=== PATIENT | male | born 1960 | race Caucasian/White ===

== ENCOUNTER 2017-03-08 11:54 | Emergency (ER) | payer MEDICARE, MEDICAID ==
[2017-03-08 12:29] VITALS: BP 128/79
--- NOTE | 2017-03-08 12:51 | EDM.PDOC ---
[id number] DEVELOPED ON JAW Time Seen by Provider: 03/08/17 12:30 Source of Information: Reports: Patient, Family History Limitations: Reports: No limitations - History of Present Illness INITIAL COMMENTS - FREE TEXT/NARRATIVE: 57-year-old male who has undergone some extensive mandible surgical procedures for osteomyelitis was doing well but over the last 24 hours has developed a reddened fluctuant area on the left mandible near his surgical incisions. No fever but he claims it is somewhat tender. Onset: gradual (Over the past day) Location: Reports: face Severity: mild Associated Symptoms: Denies: fever/chills, headaches, shortness of breath - Related Data Allergies Allergy/AdvReac Type Severity Reaction Status Date / Time amoxicillin [Amoxicillin] Allergy Rash Verified 03/08/17 13:54 dexamethasone [From Decadron] Allergy Burning Verified 03/08/17 13:54 simvastatin AdvReac Muscle Verified 03/08/17 13:54 Aches environmental Allergy Chest Uncoded 03/08/17 13:54 Tightness Home Meds: Home Meds Cetirizine HCl [Allergy Relief] 10 mg PO DAILY PRN 09/05/14 [History] Cholecalciferol (Vitamin D3) [Vitamin D] 2,000 unit PO DAILY 09/05/14 [History] Donepezil HCl [Aricept] 10 mg PO DAILY 09/05/14 [History] Meloxicam [Mobic] 15 mg PO DAILY 09/05/14 [History] Multivitamin with Minerals [Multiple Vitamin] 1 tab PO DAILY 09/05/14 [History] clomiPRAMINE HCl [Anafranil] 150 mg PO BID 09/05/14 [History] risperiDONE [Risperdal] 0.5 mg PO BID 09/05/14 [History] Levothyroxine [Levothroid] 150 mcg PO DAILY 10/23/15 [History] Past Medical History HEENT History: Reports: Allergic rhinitis, Impaired vision Respiratory History: Reports: Asthma Gastrointestinal History: Reports: GERD Musculoskeletal History: Reports: Arthritis, Osteoarthritis Neurological History: Reports: Other (see below) Other Neuro History: Downs syndrome Psychiatric History: Reports: Anxiety, OCD Endocrine/Metabolic History: Reports: Hypothyroidism Oncologic (Cancer) History: Reports: Other (see below) Other Oncologic History: skin Dermatologic History: Reports: Other (see below) Other Dermatologic History: basal cell on forehead and shoulder/back - Infectious Disease History Infectious Disease History: Reports: Chicken pox, Herpes, Measles, RSV - Past Surgical History HEENT Surgical History: Reports: Eye surgery, Oral surgery, Other (see below) Other HEENT Surgeries/Procedures: dental implants lower, dental implants removed , debriedment and removal of left side of mandible, mandible reconstruction GI Surgical History: Reports: Colonoscopy Oncologic Surgical History: Reports: None Dermatological Surgical History: Reports: Skin biopsy Social & Family History - Family History Family Medical History: Noncontributory - Tobacco Use Smoking Status *Q: Never Smoker Second Hand Smoke Exposure: No - Caffeine Use Caffeine Use: Reports: Coffee - Alcohol Use Days Per Week of Alcohol Use: 0 - Recreational Drug Use Recreational Drug Use: No ED ROS GENERAL - Review of Systems Review Of Systems: See Below Constitutional: Denies: fever, chills, malaise HEENT: Reports: Other (Some mild increased jaw pain) Respiratory: Denies: Shortness of Breath Cardiovascular: Denies: Chest pain GI/Abdominal: Denies: Nausea, Vomiting Skin: Reports: erythema (Some erythema over the swollen area of the left jaw) Neurological: Denies: Headache Psychiatric: Reports: Other (Patient has Down's syndrome) ED EXAM, GENERAL - Physical Exam Exam: See Below Exam Limited By: No limitations General Appearance: alert, no apparent distress Neck: other (Patient does have a somewhat fluctuant swollen area approximately 2.5 x 2.5 cm under the left jaw. It is slightly erythematous but not warm, patient claims there is some tenderness to palpation.) Respiratory/Chest: no respiratory distress Course - Vital Signs Last Recorded V/S: Last Vital Signs Temp 97.3 F 03/08/17 12:28 Pulse 75 03/08/17 12:28 Resp 14 03/08/17 12:28 BP 128/79 03/08/17 12:28 Pulse Ox 100 03/08/17 12:28 - Orders/Labs/Meds Labs: Laboratory Tests 03/08/17 03/08/17 Range/Units 12:52 12:52 WBC 6.4 (4.5-11.0) K/uL RBC 3.93 L (4.30-5.90) M/uL Hgb 11.7 L (12.0-15.0) g/dL Hct 37.3 L (40.0-54.0) % MCV 95 (80-98) fL MCH 30 (27-31) pg MCHC 31 L (32-36) % Plt Count 324 (150-400) K/uL Neut % (Auto) 79 H (36-66) % Lymph % (Auto) 10 L (24-44) % [place] % (Auto) 9 H (2-6) % Eos % (Auto) 0 L (2-4) % Baso % (Auto) 1 (0-1) % C-Reactive Protein 1.12 H (0.0-0.3) mg/dL - Re-Assessments/Exams Free Text/Narrative Re-Assessment/Exam: 03/08/17 12:51 Patient is afebrile, CRP and CBC were obtained. 03/08/17 13:39 CRP was 1.1, WBC was normal. The patient's maxillofacial surgeon was contacted and she requested he be placed back on Flagyl and cephalexin and they will recheck him on Monday. Departure - Departure Time of Disposition: 14:03 Disposition: Home, Self-Care 01 Condition: good Clinical Impression: Osteomyelitis of mandible Instructions: Bone and Joint Infections, Adult Referrals: Mally Putnam NP [Primary Care Provider] - Forms: ED Department Discharge Care Plan Goals: Take antibiotics as prescribed until recheck next week as planned. Return anytime sooner if worsening or concerns.
== END 2017-03-08 14:04 | disposition home or self-care (01) ==
LOC: JP.ED 11:54
DX: M27.2 Inflammatory conditions of jaws (principal); J45.909 Unspecified asthma, uncomplicated; K21.9 Gastro-esophageal reflux disease without esophagitis; M19.90 Unspecified osteoarthritis, unspecified site; F41.9 Anxiety disorder, unspecified; E03.9 Hypothyroidism, unspecified; Z98.890 Other specified postprocedural states; Z88.1 Allergy status to other antibiotic agents; Z88.8 Allergy status to other drugs, medicaments and biological substances; Z79.899 Other long term (current) drug therapy
CPT/HCPCS: 36415; 85025; 86140; 99283

== ENCOUNTER 2019-10-13 18:53 | Emergency (ER) | payer MEDICARE, MEDICAID ==
[2019-10-13 19:55] VITALS: BP 112/64; PULSE 60
--- NOTE | 2019-10-13 21:42 | EDM.PDOC ---
ED HPI GENERAL MEDICAL PROBLEM - General Chief Complaint: Lower Extremity Injury/Pain Stated Complaint: R LEG PAIN Time Seen by Provider: 10/13/19 20:00 Source of Information: Reports: Patient, Family History Limitations: Reports: No Limitations - History of Present Illness INITIAL COMMENTS - FREE TEXT/NARRATIVE: 59-year-old male with Down syndrome, lives in a local fpc when they noticed that he has some right leg swelling over the past 24 hours. No specific trauma but he has also developed some redness over the inner aspect of the right ankle. He admits tenderness to palpation of the upper leg and some pain with movement. He denies any trauma. He also has a "low-grade fever". No nausea or vomiting. Denies shortness of breath. Onset: Gradual Duration: Day(s): (Over the last couple days) Location: Reports: Lower Extremity, Right Quality: Reports: Ache Worsens with: Reports: Movement Associated Symptoms: Reports: Fever/Chills. Denies: Nausea/Vomiting, Shortness of Breath right leg Pain Score (Numeric/FACES): 8 - Related Data Allergies Allergy/AdvReac Type Severity Reaction Status Date / Time amoxicillin [Amoxicillin] Allergy Rash Verified 08/11/18 17:50 dexamethasone [From Decadron] Allergy Burning Verified 08/11/18 17:50 simvastatin AdvReac Muscle Verified 08/11/18 17:50 Aches environmental Allergy Chest Uncoded 08/11/18 17:50 Tightness Home Meds: Home Meds Cetirizine HCl [Allergy Relief] 10 mg PO DAILY PRN 09/05/14 [History] Cholecalciferol (Vitamin D3) [Vitamin D3] 2,000 unit PO DAILY 09/05/14 [History] Donepezil HCl [Aricept] 10 mg PO DAILY 09/05/14 [History] Multivitamin with Minerals [Multiple Vitamin] 1 tab PO DAILY 09/05/14 [History] clomiPRAMINE HCl [Anafranil] 150 mg PO DAILY 09/05/14 [History] risperiDONE [Risperdal] 0.5 mg PO BID 09/05/14 [History] Levothyroxine [Levothroid] 150 mcg PO DAILY 10/23/15 [History] Acetaminophen [Tylenol] 1,000 mg PO BID #100 tablet 08/24/18 [Rx] Acetaminophen [Tylenol] 650 mg PO Q4H PRN tablet 08/24/18 [Rx] Lactose-Reduced Food [Ensure Clear] 296 ml PO QID #120 liquid 08/24/18 [Rx] Pantoprazole [ProTONIX] 40 mg PO BIDAC 30 Days #60 tab.cr 08/24/18 [Rx] Past Medical History HEENT History: Reports: Allergic Rhinitis, Impaired Vision Respiratory History: Reports: Asthma Gastrointestinal History: Reports: GERD, Other (See Below) Other Gastrointestinal History: Bleeding ulcer Musculoskeletal History: Reports: Arthritis, Osteoarthritis Neurological History: Reports: Other (See Below) Other Neuro History: Downs Syndrome Psychiatric History: Reports: Anxiety, OCD, Other (See Below) Other Psychiatric History: Downs Syndrome Endocrine/Metabolic History: Reports: Hypothyroidism Hematologic History: Reports: Blood Transfusion(s), Transfusion Reaction Oncologic (Cancer) History: Reports: Basal Cell Carcinoma, Other (See Below) Other Oncologic History: skin Dermatologic History: Reports: Other (See Below) Other Dermatologic History: basal cell on forehead and shoulder/back - Infectious Disease History Infectious Disease History: Reports: Chicken Pox - Past Surgical History HEENT Surgical History: Reports: Eye Surgery, Oral Surgery GI Surgical History: Reports: Colonoscopy, Other (See Below) Other GI Surgeries/Procedures: removal of bleeding ulcer Musculoskeletal Surgical History: Reports: Other (See Below) Other Musculoskeletal Surgeries/Procedures:: osteomylitis jaw surgery 2018 with dentures and implants Dermatological Surgical History: Reports: Skin Biopsy Social & Family History - Family History Family Medical History: Noncontributory - Tobacco Use Smoking Status *Q: Never Smoker - Caffeine Use Caffeine Use: Reports: Coffee, Soda - Recreational Drug Use Recreational Drug Use: No - Living Situation & Occupation Living situation: Reports: Extended Care Facility Occupation: Disabled (Down's Syndrome adult living in [facility] owned by his family. His Mom has POA, his Sister, PHN, monitors his health/living.) Review of Systems - Review of Systems Review Of Systems: See Below Constitutional: Reports: Fever Eyes: Reports: No Symptoms Respiratory: Reports: No Symptoms Cardiovascular: Reports: No Symptoms Musculoskeletal: Reports: Leg Pain Skin: Reports: Erythema (Some erythema has developed over the medial aspect of the left ankle) ED EXAM, GENERAL - Physical Exam Exam: See Below Exam Limited By: No Limitations General Appearance: Alert, No Apparent Distress Respiratory/Chest: No Respiratory Distress, Lungs Clear Cardiovascular: Regular Rate, Rhythm GI/Abdominal: Non-Tender Extremities: Other (The right leg is swollen diffusely compared to the left. There is tenderness to palpation along the thigh, and also the distal medial lower leg over the ankle. There is some redness and slight warmth to the skin over the ankle) Neurological: Alert, Oriented Psychiatric: Normal Affect, Normal Mood Course - Vital Signs Last Recorded V/S: Last Vital Signs Temp 98.0 F 10/13/19 19:55 Pulse 60 10/13/19 19:55 Resp 15 10/13/19 19:55 BP 112/64 10/13/19 19:55 Pulse Ox 100 10/13/19 19:55 - Re-Assessments/Exams Free Text/Narrative Re-Assessment/Exam: 10/14/19 00:11 An ultrasound of the right leg was obtained that showed only superficial thrombophlebitis the thigh and diffuse swelling. No clots were found of the deep venous system. Patient will be placed on cephalexin 500 mg 3 times a day, encouraged to use elevation and compression and can return if worsening despite treatment. Departure - Departure Time of Disposition: 21:59 Disposition: Home, Self-Care 01 Clinical Impression: Cellulitis of leg, right, Superficial thrombophlebitis of right leg - Discharge Information Instructions: Cellulitis, Adult Referrals: Barney Wayne NP [Primary Care Provider] - Forms: ED Department Discharge Care Plan Goals: Take antibiotic 3 times a day until gone. Elevating the leg and support stockings may be helpful. Return anytime if worsening such as persistent fever or worsening pain or redness, otherwise recheck in 5-7 days if not improving.
--- NOTE | 2019-10-13 21:57 | CRLUS ---
INDICATION: Right lower extremity pain and swelling. TECHNIQUE: Ultrasound venous duplex lower right extremity. Compression venous exam was performed using shelley-scale, color Doppler, and spectral Doppler imaging. COMPARISON: None. FINDINGS: Sonographic imaging demonstrates the right common femoral, deep femoral, superficial femoral, popliteal, posterior tibial and peroneal veins to be fully compressible with normal color Doppler blood flow. The greater saphenous vein in the upper thigh is fully compressible. However, it is incompletely compressible in the distal thigh as well as in the proximal and mid calf. This is consistent with superficial thrombophlebitis. IMPRESSION: 1. No sign of deep venous thrombosis. 2. The greater saphenous vein in the distal thigh as well as the proximal and mid calf is incompletely compressible consistent with superficial thrombophlebitis. Dictated by Rasheed Fontaine MD @ 10/13/2019 9:55:41 PM Dictated by: Rasheed Fontaine MD @ 10/13/2019 21:55:51 (Electronically Signed)
== END 2019-10-13 21:59 | disposition home or self-care (01) ==
LOC: JP.ED 18:53
DX: I80.01 Phlebitis and thrombophlebitis of superficial vessels of right lower extremity (principal); L03.115 Cellulitis of right lower limb; J45.909 Unspecified asthma, uncomplicated; F42.9 Obsessive-compulsive disorder, unspecified; Z88.0 Allergy status to penicillin; Z88.1 Allergy status to other antibiotic agents; Z88.8 Allergy status to other drugs, medicaments and biological substances
CPT/HCPCS: 93971-RT; 99283-25

== ENCOUNTER 2020-01-26 10:17 | Emergency (ER) | payer MEDICARE, MEDICAID ==
[2020-01-26 10:45] VITALS: BP 101/62; PULSE 72
--- NOTE | 2020-01-26 11:02 | EDM.PDOC ---
ED HPI GENERAL MEDICAL PROBLEM - General Chief Complaint: Lower Extremity Injury/Pain Stated Complaint: POSSIBLE CELLULITIS Time Seen by Provider: 01/26/20 10:48 Source of Information: Reports: Patient, Other (Facility care staff.) History Limitations: Reports: No Limitations - History of Present Illness INITIAL COMMENTS - FREE TEXT/NARRATIVE: Patient is brought for evaluation of increasing left ankle swelling and pain over the last several days without known injury. The patient has a history of cellulitis in his legs and staff at his care facility were concerned that something like that was beginning again. Patient denies, and staff is unaware of , any recent injury area did he uses a walker when he moves around but in the last 24 hours in particular, the ankle has become so uncomfortable and swollen that he will not bear weight on it. The right ankle and foot are uninvolved. He has some type of oral surgery planned for later in the month and they don't want anything to jeopardize going forward with that surgery. No fever or chills. No other painful areas similar to the left ankle region that he is aware of Onset: Gradual Duration: Day(s): (3) Location: Reports: Lower Extremity, Left Quality: Reports: Ache, Burning Severity: Moderate Improves with: Reports: None Worsens with: Reports: Movement Associated Symptoms: Reports: No Other Symptoms Left Foot Pain Score (Numeric/FACES): 10 - Related Data Allergies Allergy/AdvReac Type Severity Reaction Status Date / Time amoxicillin [Amoxicillin] Allergy Rash Verified 01/26/20 10:44 dexamethasone [From Decadron] Allergy Burning Verified 01/26/20 10:44 simvastatin AdvReac Muscle Verified 01/26/20 10:44 Aches environmental Allergy Chest Uncoded 01/26/20 10:44 Tightness Home Meds: Home Meds Cetirizine HCl [Allergy Relief] 10 mg PO DAILY PRN 09/05/14 [History] Cholecalciferol (Vitamin D3) [Vitamin D3] 2,000 unit PO DAILY 09/05/14 [History] Donepezil HCl [Aricept] 10 mg PO DAILY 09/05/14 [History] Multivitamin with Minerals [Multiple Vitamin] 1 tab PO DAILY 09/05/14 [History] clomiPRAMINE HCl [Anafranil] 150 mg PO DAILY 09/05/14 [History] risperiDONE [Risperdal] 0.5 mg PO BID 09/05/14 [History] Levothyroxine [Levothroid] 150 mcg PO DAILY 10/23/15 [History] Acetaminophen [Tylenol] 1,000 mg PO BID #100 tablet 08/24/18 [Rx] Acetaminophen [Tylenol] 650 mg PO Q4H PRN tablet 08/24/18 [Rx] Pantoprazole [ProTONIX] 40 mg PO BIDAC 30 Days #60 tab.cr 08/24/18 [Rx] atorvaSTATin [Lipitor] 10 mg PO BEDTIME 01/26/20 [History] Past Medical History HEENT History: Reports: Allergic Rhinitis, Impaired Vision Respiratory History: Reports: Asthma Gastrointestinal History: Reports: GERD, Other (See Below) Other Gastrointestinal History: Bleeding ulcer Musculoskeletal History: Reports: Arthritis, Osteoarthritis Neurological History: Reports: Other (See Below) Other Neuro History: Downs Syndrome Psychiatric History: Reports: Anxiety, OCD, Other (See Below) Other Psychiatric History: Downs Syndrome Endocrine/Metabolic History: Reports: Hypothyroidism Hematologic History: Reports: Blood Transfusion(s), Transfusion Reaction Oncologic (Cancer) History: Reports: Basal Cell Carcinoma, Other (See Below) Other Oncologic History: skin Dermatologic History: Reports: Other (See Below) Other Dermatologic History: basal cell on forehead and shoulder/back - Infectious Disease History Infectious Disease History: Reports: Chicken Pox - Past Surgical History HEENT Surgical History: Reports: Eye Surgery, Oral Surgery GI Surgical History: Reports: Colonoscopy, Other (See Below) Other GI Surgeries/Procedures: removal of bleeding ulcer Musculoskeletal Surgical History: Reports: Other (See Below) Other Musculoskeletal Surgeries/Procedures:: osteomylitis jaw surgery 2018 with dentures and implants Dermatological Surgical History: Reports: Skin Biopsy Social & Family History - Family History Family Medical History: Noncontributory - Caffeine Use Caffeine Use: Reports: Coffee, Soda - Living Situation & Occupation Living situation: Reports: Extended Care Facility Occupation: Disabled (Down's Syndrome adult living in Retirement owned by his family. His Mom has POA, his Sister, PHN, monitors his health/living.) ED ROS GENERAL - Review of Systems Review Of Systems: Comprehensive ROS is negative, except as noted in HPI. ED EXAM, SKIN/RASH Exam: See Below Text/Narrative:: Patient is seated in a wheelchair with the left ankle and foot elevated. He has Down syndrome but does slowly respond to questions put to him. Exam Limited By: No Limitations General Appearance: Alert, No Apparent Distress Extremities: Pedal Edema, Limited Range of Motion (At left ankle.), Other ( There is moderate edema in the region of the entire ankle joint and palpation of the same area is extremely uncomfortable. The toes have some chronic- appearing color change and are similar to the toes of the right foot. None of the toes are painful. Any attempted passive movement of the ankle increases pain instantly. There is no evidence of ecchymosis in the ankle joint.). No: Redness Skin: No: Erythema Course - Vital Signs Last Recorded V/S: Last Vital Signs Temp 35.9 C L 01/26/20 10:57 Pulse 72 01/26/20 10:57 Resp 16 01/26/20 10:57 BP 101/62 01/26/20 10:57 Pulse Ox 98 01/26/20 10:57 - Orders/Labs/Meds Orders: Active Orders 24 hr Category Date Time Status Ankle Min 3V Lt [CR] Stat Exams 01/26/20 11:03 Taken Labs: Laboratory Tests 01/26/20 01/26/20 01/26/20 Range/Units 11:14 11:14 11:14 WBC 7.9 (4.5-11.0) K/uL RBC 4.05 L (4.30-5.90) M/uL Hgb 12.0 D (12.0-15.0) g/dL Hct 37.1 L (40.0-54.0) % MCV 92 (80-98) fL MCH 30 (27-31) pg MCHC 32 (32-36) % Plt Count 244 (150-400) K/uL Neut % (Auto) 75 H (36-66) % Lymph % (Auto) 9 L (24-44) % [place] % (Auto) 15 H (2-6) % Eos % (Auto) 0 L (2-4) % Baso % (Auto) 1 (0-1) % ESR 97 H (0-20) mm/hr Sodium 138 L (140-148) mmol/L Potassium 4.1 (3.6-5.2) mmol/L Chloride 104 (100-108) mmol/L Carbon Dioxide 28 (21-32) mmol/L Anion Gap 10.1 (5.0-14.0) mmol/L BUN 10 (7-18) mg/dL Creatinine 0.9 (0.8-1.3) mg/dL Est Cr Clr Drug Dosing 74.37 mL/min Estimated GFR (MDRD) > 60 (>60) Glucose 102 (74-106) mg/dL Uric Acid 2.7 L (3.5-7.2) mg/dL Calcium 8.2 L (8.5-10.1) mg/dL C-Reactive Protein 10.97 H (0.0-0.3) mg/dL - Re-Assessments/Exams Free Text/Narrative Re-Assessment/Exam: 01/26/20 11:09 This does not look like cellulitis, rather it looks like some type of inflammatory condition of the ankle such as gout or similar. We'll obtain an ankle x-ray to make sure there is no bony injury and also look at inflammatory labs. 01/26/20 19:57 I returned later to review imaging which does not show any acute bony injury although there is some degenerative change in the medial portion of the talus as well as soft tissue edema. His sedimentation rate and CRP are elevated. He is not using any type of anti-inflammatory medication currently he previously had some type of "bleeding ulcer" according to care staff who accompany him. I think is reasonable to have him use ibuprofen 800 mg 3 times a day over the next week. He should follow-up with his primary care provider by January. He may need additional evaluation of his ankle region. He was discharged in stable condition. 01/26/20 19:58 Departure - Departure Time of Disposition: 12:36 Disposition: DC/Tfer to [facility] Condition: Good Clinical Impression: Left ankle pain Qualifiers: Chronicity: acute Qualified Code(s): M25.572 - Pain in left ankle and joints of left foot - Discharge Information *PRESCRIPTION DRUG MONITORING PROGRAM REVIEWED*: Not Applicable *COPY OF PRESCRIPTION DRUG MONITORING REPORT IN PATIENT CHANI: Not Applicable ( Elevate the right leg to reduce swelling and pain as much as possible. Cold packs to left ankle area 20 minutes off and on. Start ibuprofen 800 mg 3 times a day and taken over the next week. If feeling worse in anyway, recheck with care facility's provider or return to this department.) Instructions: Ankle Pain Referrals: Barney Wayne NP [Primary Care Provider] - Forms: ED Department Discharge Sepsis Event Note - Focused Exam Vital Signs: Vital Signs Temp Pulse Resp BP Pulse Ox 01/26/20 10:57 35.9 C L 72 16 101/62 98 01/26/20 10:44 35.9 C L 72 16 101/62 98 Date Exam was Performed: 01/26/20 Time Exam was Performed: 19:56 - My Orders Last 24 Hours: My Active Orders 01/26/20 11:03 Ankle Min 3V Lt [CR] Stat - Assessment/Plan Last 24 Hours: My Active Orders 01/26/20 11:03 Ankle Min 3V Lt [CR] Stat
--- NOTE | 2020-01-27 10:36 | CR ---
Ankle Min 3V Lt CLINICAL HISTORY: Pain and swelling, NKI FINDINGS: The soft tissues are swollen. No acute fracture or dislocation is noted. Ankle mortise is intact. There is some ossific density off the tip of the malleolus as well as of the medial aspect of the talocalcaneal junction region. This could be avulsion fracture. This could also be chronic. There is also a tiny density seen at the tip of the fibula. Impression: Moderate soft tissue swelling Tiny ossific densities are seen off the tip of the medial malleolus and the talocalcaneal junction region which could be from previous ligamentous avulsion fractures
== END 2020-01-26 12:53 ==
LOC: JP.ED 10:17
DX: M25.572 Pain in left ankle and joints of left foot (principal); J45.909 Unspecified asthma, uncomplicated; K21.9 Gastro-esophageal reflux disease without esophagitis; M19.90 Unspecified osteoarthritis, unspecified site; F41.9 Anxiety disorder, unspecified; E03.9 Hypothyroidism, unspecified; Z88.1 Allergy status to other antibiotic agents; Z88.8 Allergy status to other drugs, medicaments and biological substances; Z91.048 Other nonmedicinal substance allergy status; Z79.899 Other long term (current) drug therapy
CPT/HCPCS: 36415; 73610-26-LT; 73610-LT; 80048; 84550; 85025; 85651; 86140; 99282; 99283-25

== ENCOUNTER 2020-05-16 12:17 | Emergency (ER) | payer MEDICARE, MEDICAID ==
[2020-05-16 12:55] VITALS: BP 109/76; PULSE 67
--- NOTE | 2020-05-16 13:43 | EDM.PDOC ---
ED HPI GENERAL MEDICAL PROBLEM - General Chief Complaint: ENT Problem Stated Complaint: LOWER LEFT JAW Time Seen by Provider: 05/16/20 13:35 Source of Information: Reports: Patient, Family, RN Notes Reviewed History Limitations: Reports: Physical Impairment - History of Present Illness INITIAL COMMENTS - FREE TEXT/NARRATIVE: 60-year-old gentleman presents emergency department today following dental surgery he did have a half a plate removed has had extensive surgery on the left side of his job over the last couple days they have noticed increased swelling around the face as well as thick purulent discharge no fever - Related Data Allergies Allergy/AdvReac Type Severity Reaction Status Date / Time amoxicillin [Amoxicillin] Allergy Rash Verified 05/16/20 13:01 dexamethasone [From Decadron] Allergy Burning Verified 05/16/20 13:01 simvastatin AdvReac Muscle Verified 05/16/20 13:01 Aches environmental Allergy Chest Uncoded 01/26/20 10:44 Tightness Home Meds: Home Meds Cholecalciferol (Vitamin D3) [Vitamin D3] 2,000 unit PO DAILY 09/05/14 [History] Donepezil HCl [Aricept] 10 mg PO DAILY 09/05/14 [History] Multivitamin with Minerals [Multiple Vitamin] 1 tab PO DAILY 09/05/14 [History] clomiPRAMINE HCl [Anafranil] 150 mg PO DAILY 09/05/14 [History] risperiDONE [Risperdal] 0.5 mg PO DAILY 09/05/14 [History] Levothyroxine [Levothroid] 150 mcg PO DAILY 10/23/15 [History] Acetaminophen [Tylenol] 1,000 mg PO BID #100 tablet 08/24/18 [Rx] Acetaminophen [Tylenol] 650 mg PO Q4H PRN tablet 08/24/18 [Rx] Pantoprazole [ProTONIX] 40 mg PO BIDAC 30 Days #60 tab.cr 08/24/18 [Rx] atorvaSTATin [Lipitor] 10 mg PO BEDTIME 01/26/20 [History] Cetirizine [ZyrTEC] 10 mg PO DAILY 05/16/20 [History] Chlorhexidine Gluconate 0.5 oz PO ASDIRECTED 05/16/20 [History] Clotrimazole [Clotrimazole 1%] 1 applic TOP BID 05/16/20 [History] Donepezil HCl [Aricept] 10 mg PO DAILY 05/16/20 [History] risperiDONE [Risperdal] 1 mg PO BEDTIME 05/16/20 [History] Past Medical History HEENT History: Reports: Allergic Rhinitis, Impaired Vision Respiratory History: Reports: Asthma Gastrointestinal History: Reports: Other (See Below) Other Gastrointestinal History: Bleeding ulcer Musculoskeletal History: Reports: Arthritis, Osteoarthritis Neurological History: Reports: Other (See Below) Other Neuro History: Downs Syndrome Psychiatric History: Reports: Anxiety, OCD, Other (See Below) Other Psychiatric History: Downs Syndrome Endocrine/Metabolic History: Reports: Hypothyroidism Hematologic History: Reports: Blood Transfusion(s) Oncologic (Cancer) History: Reports: Basal Cell Carcinoma, Other (See Below) Other Oncologic History: skin Dermatologic History: Reports: Other (See Below) Other Dermatologic History: basal cell on forehead and shoulder/back - Infectious Disease History Infectious Disease History: Reports: Chicken Pox - Past Surgical History Head Surgeries/Procedures: Reports: None HEENT Surgical History: Reports: Eye Surgery, Oral Surgery GI Surgical History: Reports: Colonoscopy, Other (See Below) Other GI Surgeries/Procedures: removal of bleeding ulcer Endocrine Surgical History: Reports: None Neurological Surgical History: Reports: None Musculoskeletal Surgical History: Reports: Other (See Below) Other Musculoskeletal Surgeries/Procedures:: osteomylitis jaw surgery 2018 with dentures and implants Oncologic Surgical History: Reports: None Dermatological Surgical History: Reports: Skin Biopsy Social & Family History - Family History Family Medical History: Noncontributory - Tobacco Use Smoking Status *Q: Never Smoker Second Hand Smoke Exposure: No - Caffeine Use Caffeine Use: Reports: Coffee, Soda, Tea - Recreational Drug Use Recreational Drug Use: No - Living Situation & Occupation Living situation: Reports: Extended Care Facility Occupation: Disabled (Down's Syndrome adult living in [employer] owned by his family. His Mom has POA, his Sister, PHN, monitors his health/living.) ED ROS ENT - Review of Systems Review Of Systems: See Below Constitutional: Denies: Fever, Chills HEENT: Reports: Other (Thick purulent discharge from the mouth with increased swelling) Respiratory: Reports: No Symptoms Cardiovascular: Reports: No Symptoms GI/Abdominal: Reports: No Symptoms ED EXAM, ENT - Physical Exam Exam: See Below Text/Narrative:: Mouth because it is moist and pink surgical sutures appear well there is a thick purulent discharge collecting in the inferior portion of the mouth there is some edema as well predominantly on the right side does feel slightly warm to the touch neck no lymphadenopathy Exam Limited By: Physical Impairment General Appearance: Alert, WD/WN, No Apparent Distress Respiratory/Chest: No Respiratory Distress Course - Vital Signs Last Recorded V/S: Last Vital Signs Temp 95.9 F L 05/16/20 12:58 Pulse 67 05/16/20 12:58 Resp 13 05/16/20 12:58 BP 109/76 05/16/20 12:58 Pulse Ox 99 05/16/20 12:58 Departure - Departure Time of Disposition: 13:43 Disposition: Home, Self-Care 01 Condition: Fair Clinical Impression: Dental infection - Discharge Information Instructions: Dental Abscess, [id number] Referrals: Barney Wayne NP [Primary Care Provider] - Additional Instructions: Take full course of antibiotics, keep follow-up appointment with dentistry next week Sepsis Event Note (ED) - Evaluation Sepsis Screening Result: No Definite Risk - Focused Exam Vital Signs: Vital Signs Temp Pulse Resp BP Pulse Ox 05/16/20 12:58 95.9 F L 67 13 109/76 99 05/16/20 12:53 95.9 F L 67 13 109/76 99 - Assessment/Plan Plan: Assessment Acuity = acute Site and laterality = dental infection Etiology = possibly from recent surgery Manifestations = none Location of injury = Home Lab values = none Plan Elected to treat empirically clindamycin 300 mg p.o. 3 times daily x10 days he does have follow-up appointment with dentistry on Monday of next week This note was dictated using [employer] voice recognition software please call with any questions on syntax or grammar.
== END 2020-05-16 13:57 | disposition home or self-care (01) ==
LOC: JP.ED 12:17
DX: K04.7 Periapical abscess without sinus (principal); J45.909 Unspecified asthma, uncomplicated; F41.9 Anxiety disorder, unspecified; Q90.9 Down syndrome, unspecified; E03.9 Hypothyroidism, unspecified; Z79.899 Other long term (current) drug therapy; Z88.1 Allergy status to other antibiotic agents; Z88.8 Allergy status to other drugs, medicaments and biological substances; Z91.09 Other allergy status, other than to drugs and biological substances
CPT/HCPCS: 99283

== ENCOUNTER 2024-06-28 06:54 | Inpatient (IN) | payer MEDICARE, MEDICAID ==
[2024-06-28] MEDS ORDERED: ceFAZolin 2 GM in Sodium Chloride 0.9% 100 ML IV ONE (07:00)
[2024-06-28] MEDS ORDERED: Bupivacaine 0.5% 50 ML MDV ONE (07:08)
[2024-06-28] MEDS ORDERED: Midazolam 1 MG/ML 2 ML SDV ONE (07:22)
[2024-06-28] MEDS ORDERED: fentaNYL 100 MCG/2 ML SDV ONE ×2 (07:22→11:52)
[2024-06-28] MEDS ORDERED: Propofol 200 MG/20 ML SDV ONE ×2 (07:22→11:38)
[2024-06-28] MEDS: Nozin Nasal Sanitizer NASBOTH SCH (08:33)
[2024-06-28] MEDS: Lactated Ringers 1,000 ML IV SCH (08:34)
[2024-06-28] MEDS: ceFAZolin 2 GM in Premix Bag 1 BAG IV ONE (10:10)
[2024-06-28] MEDS: SODIUM CHLORIDE 0.9% IV ONE (10:40)
[2024-06-28] MEDS: TRANEXAMIC ACID IV ONE (10:40)
[2024-06-28] MEDS ORDERED: Sodium Chloride 0.9% 10 ML ONE ×2 (11:13→11:36)
[2024-06-28] MEDS ORDERED: ePHEDrine 50 MG/ML SDV ONE (11:13)
[2024-06-28] MEDS ORDERED: Phenylephrine 1% 10 MG/ML SDV ONE (11:36)
[2024-06-28] MEDS ORDERED: Lactated Ringers 1,000 ML ONE (11:41)
[2024-06-28] MEDS ORDERED: Ondansetron 4 MG/2 ML SDV IVPUSH PRN (12:57)
[2024-06-28] MEDS ORDERED: Docusate Sodium 100 MG Cap PO PRN (12:57)
[2024-06-28] MEDS ORDERED: Magnesium Hydroxide 400 MG/5 ML Susp 30 ML Cup PO PRN (12:57)
[2024-06-28] MEDS ORDERED: ceFAZolin 2 GM in Sodium Chloride 0.9% 50 ML IV SCH (13:00)
[2024-06-28] MEDS ORDERED: CHLORHEXIDINE GLUCONATE PO SCH (13:15)
[2024-06-28] MEDS: Acetaminophen 325 MG Tab PO SCH (15:35)
[2024-06-28] MEDS: Pantoprazole 40 MG Tab.CR PO SCH (15:36)
[2024-06-28] MEDS: Ketorolac 15 MG/ML SDV IVPUSH PRN (16:33)
[2024-06-28] MEDS: Sodium Chloride 0.9% 1,000 ML IV SCH (16:34)
[2024-06-28] MEDS: ceFAZolin 2 GM in Premix Bag 1 BAG IV SCH (17:10)
[2024-06-28] MEDS: CLOMIPRAMINE 75 MG PO SCH (20:39)
[2024-06-28] MEDS: Nystatin Crm 15 GM Tube TOP SCH (20:40)
[2024-06-28] MEDS: Donepezil 10 MG Tab PO SCH (20:42)
[2024-06-28] MEDS: atorvaSTATin 10 MG Tab PO SCH (20:42)
[2024-06-28] MEDS: Clotrimazole 1% Crm 30 GM Tube TOP SCH (20:42)
[2024-06-28] MEDS: Chlorhexidine Gluconate 0.12% Oral Rinse 473 ML Bottle PO SCH (20:43)
[2024-06-28] MEDS: risperiDONE 0.5 MG Tab PO SCH (20:45)
[2024-06-28] MEDS ORDERED: Nozin Nasal Sanitizer NASBOTH SCH (21:00)
[2024-06-29 05:03] LABS: HEMATOCRIT 28.5 % (38.4-49.7); HEMOGLOBIN 9.7 g/dL (12.9-16.9); MEAN CORPUSCULAR HEMOGLOBIN 33.1 pg (31.6-35.5); MEAN CORPUSCULAR VOLUME 97.3 fL (81.4-99.0); RED BLOOD CELL COUNT 2.93 M/uL (4.14-5.76); WHITE BLOOD CELL COUNT,WBC 7.8 K/uL (3.2-11.0)
[2024-06-29] MEDS: Ferrous Sulfate 325 MG Tab PO SCH (08:53)
[2024-06-29] MEDS: Apixaban 2.5 MG Tab PO SCH (08:55)
[2024-06-29] MEDS: risperiDONE 0.5 MG Tab PO SCH (08:57)
[2024-06-29] MEDS: Sennosides 8.6 MG Tab PO SCH (08:57)
[2024-06-29] MEDS: Multivitamins with Iron/Calcium/Folic Acid/Minerals Tab PO SCH (08:58)
[2024-06-29] MEDS: Cholecalciferol (Vitamin D3) 25 MCG Tab PO SCH (08:58)
[2024-06-29] MEDS: Cetirizine 10 MG Tab PO SCH (08:58)
[2024-06-29] MEDS ORDERED: Donepezil 10 MG Tab PO SCH (09:00)
[2024-06-29] MEDS ORDERED: LYCOPENE 10 MG PO SCH (09:00)
[2024-06-29] MEDS ORDERED: Non-Formulary Medication 1 Each (Levothyroxine [Levothroid] 137 MCG Tablet) PO SCH (09:00)
[2024-06-29] MEDS ORDERED: CLOMIPRAMINE HCL 75 MG PO SCH (09:00)
[2024-06-29] MEDS ORDERED: Non-Formulary Medication 1 Each (Cholecalciferol (Vitamin D3) [Vitamin D3] 2,000 UNIT Caps PO SCH (09:00)
[2024-06-29] MEDS ORDERED: Non-Formulary Medication 1 Each (Multivitamin With Minerals [Multiple Vitamin] 1 EACH Tabl PO SCH (09:00)
[2024-06-29] MEDS ORDERED: Melatonin 3 MG Tab PO PRN (15:37)
[2024-06-29] MEDS: risperiDONE 1 MG Tab PO SCH (21:00)
[2024-06-30] MEDS: Sodium Chloride 0.9% 1,000 ML IV SCH (22:11)
[2024-07-01 05:32] LABS: HEMOGLOBIN 8.5 g/dL (12.9-16.9); MEAN CORPUSCULAR HEMOGLOBIN 33.2 pg (31.6-35.5); MEAN CORPUSCULAR VOLUME 97.7 fL (81.4-99.0); RED BLOOD CELL COUNT 2.56 M/uL (4.14-5.76)
[2024-07-01] MEDS ORDERED: Sodium Chloride 0.9% 500 ML IV SCH (09:30)
[2024-07-02 05:31] LABS: HEMATOCRIT 22.3 % (38.4-49.7); HEMOGLOBIN 7.5 g/dL (12.9-16.9); MEAN CORPUSCULAR HEMOGLOBIN 32.8 pg (31.6-35.5); MEAN CORPUSCULAR HGB CONC 33.6 g/dL (31.6-35.5); MEAN CORPUSCULAR VOLUME 97.4 fL (81.4-99.0); RED BLOOD CELL COUNT 2.29 M/uL (4.14-5.76); WHITE BLOOD CELL COUNT,WBC 5.8 K/uL (3.2-11.0)
[2024-07-02 05:50] LABS: ANION GAP 6.6 mmol/L (5.0-14.0); CALCIUM 7.2 mg/dL (8.5-10.1); CREATININE 0.7 mg/dL (0.8-1.3); EST CRCL DRUG DOSING (CG) 79.62 mL/min; POTASSIUM,K 3.6 mmol/L (3.6-5.2)
[2024-07-03 05:06] VITALS: PULSE 87
[2024-07-03 05:18] VITALS: BP 101/62
[2024-07-03] MEDS ORDERED: traMADol 50 MG Tab PO PRN (07:50)
== END 2024-07-03 11:10 | disposition home or self-care (01) | DRG 467 ==
LOC: JP.SDS 06:54 → JP.MS 12:57 → JP.SDS 06-30 11:39
PROVIDERS: ADMIT Specialist; ATTEND Specialist
PROC: 0SPB0JZ Removal of Synthetic Substitute from Left Hip Joint, Open Approach (ICD-10-PCS; 2024-06-28)
PROC: 0SRB0JZ Replacement of Left Hip Joint with Synthetic Substitute, Open Approach (ICD-10-PCS; principal; 2024-06-28 08:30)
PROC: 30233N1 Transfusion of Nonautologous Red Blood Cells into Peripheral Vein, Percutaneous Approach (ICD-10-PCS; 2024-07-02)
DX: T84.115A Breakdown (mechanical) of internal fixation device of left femur, initial encounter (principal); D62 Acute posthemorrhagic anemia; I95.1 Orthostatic hypotension; J45.909 Unspecified asthma, uncomplicated; E03.9 Hypothyroidism, unspecified; M19.90 Unspecified osteoarthritis, unspecified site; F41.9 Anxiety disorder, unspecified; Q90.9 Down syndrome, unspecified; F02.B0 Dementia in other diseases classified elsewhere, moderate, without behavioral disturbance, psychotic disturbance, mood disturbance, and anxiety; Z88.1 Allergy status to other antibiotic agents; Z88.0 Allergy status to penicillin; Z88.5 Allergy status to narcotic agent; Z79.890 Hormone replacement therapy; Z79.899 Other long term (current) drug therapy; Z96.649 Presence of unspecified artificial hip joint; Z98.890 Other specified postprocedural states
CPT/HCPCS: 01230-QZ; 36415; 36430; 72170; 72170-26; 80048; 85027; 86850; 86900; 86901; 86920; 86922; 97110-GP; 97161-GP; 97165-GO; 97530-GP; 99232; A9270-GY; C1713; C1776; J0665; J0690; J1885; J2250; J2371; J2704; J3010; J3490; J7030; J7120; P9016